=== PATIENT | female | born 1985 | race Caucasian/White ===

== ENCOUNTER → 2016-07-23 | Outpatient (CLI) | payer OTHER | END | disposition disaster alternative care site (69) | LOC: GRAD 07-22 16:00 | DX: M54.5 Low back pain (principal); M47.816 Spondylosis without myelopathy or radiculopathy, lumbar region ==

== ENCOUNTER 2016-07-29 22:55 | Emergency (ER) | payer OTHER ==
--- NOTE | ~2016-07-29 | ER ---
PATIENT'S NAME: [facility] AGE: 30 Y [address] ROOM: [place], [place] [address] LOCATION: [facility] ADMIT DATE: 07/29/2016 ER/Outpatient Report DISCHARGE DATE: 07/29/2016 FAMILY PHYSICIAN: Verónica Pinto MD ATTENDING PHYSICIAN: Madai Norton TIME OF ARRIVAL: 2255 hours. TIME SEEN: 2311 hours. IDENTIFICATION: A 30-year-old female. CHIEF COMPLAINT: Back pain. HISTORY OF PRESENT ILLNESS: The patient is a 30-year-old female who has had worsening back pain and has run out of her medications 2 to 3 [address] ago[address] She saw Dr. Freedman July 09 for this back pain. She told the nurse then that she was told there was nothing wrong on her MRI. She told me that she had degenerative changes. She saw Dr. Storm today and he recommended that she follow up with her primary care physician, which she has not yet done, because that was just today, and she has not gotten in with Dr. Pinto yet; however, later, she does tell me that she actually saw Dr. Pinto prior to the MRI, but she is telling me different story than what she told the nurse. She has some tramadol at home that causes nausea, vomiting. She believes she had Neurontin or [place], she is not sure which she stopped taking 3 days ago. When asked her specifically about that, she does admit that she ran out 3 days ago. I tried to pin her down for what Dr. Storm had to say today and she said that she has degenerative changes, but he referred her back to Dr. Pinto. She denies any fall or injury. She complains of constant pain in her right low back with radiation to her right buttock. She has trouble with bowel movements just secondary to the pain when pushing. She has no incontinence of urine or bowel. Her last menstrual period she believes she is due for that again today. She has had a tubal ligation and she denies any chance of . ALLERGIES: DOXYCYCLINE. CURRENT MEDICATIONS: 1. Meloxicam. 2. Depression meds. PATIENT'S NAME: [facility] AGE: 30 Y [address] ROOM: [place], [place] [address] LOCATION: ED ADMIT DATE: 07/29/2016 ER/Outpatient Report DISCHARGE DATE: 07/29/2016 FAMILY PHYSICIAN: Verónica Pinto MD ATTENDING PHYSICIAN: Madai Norton 3. Flexeril. 4. [place]. 5. Ibuprofen. MEDICAL PROBLEMS: History of migraine headaches. PRIOR SURGERIES: Right ring finger, cholecystectomy, and tubal ligation. SOCIAL HISTORY: The patient lives here in [place]. Tobacco use, 1 pack per day. Alcohol use, occasional. Drug use, denies. REVIEW OF SYSTEMS: All systems reviewed and negative other than what is noted in the HPI. PHYSICAL EXAMINATION: VITAL SIGNS: Height 5 feet, 8 inches and weight 72.2 kg. Blood pressure 157/88, pulse 88, respirations 16, temp 98.7, and sats 98%. GENERAL: A 30-year-old female in no acute distress. HEENT: Head: Normocephalic, atraumatic. Eyes: Pupils equal and reactive to light and accommodation. Extraocular movements intact. Nose: Mucosa pink. No lesions. Mouth: No lesions. LUNGS: Clear to auscultation. HEART: Regular rate and rhythm. BACK: She is tender to palpation in the right lumbar paraspinal region. No palpable deformities. Decreased range of motion, secondary to pain. NEURO: Negative straight leg raise. Reflexes are 2+ and symmetric. Sensation is normal to light touch in bilateral lower extremities. IMPRESSION AND PLAN: Musculoskeletal low back pain. I did review her MRI, which was dated July 23 showing early degenerative changes at L3-4 and L4-5. Mild stenosis at L4- 5. Facet arthropathy at L4-5. Limited cervical imaging on the localize that is notable for C5-6 degenerative change with potentially clinically significant canal and bilateral foraminal stenosis. This could be evaluated with a dedicated cervical spine per the radiologist. We discussed using Toradol for pain here in the emergency room. As I was discussing this with her, the patient was on her phone and then all of a sudden got up and said she needed to leave because her kids were at home with her "old man who had been drinking." She said she would come back possibly later tomorrow, but that she was going to leave without any further advice at this time. PATIENT'S NAME: [facility] AGE: 30 Y [address] ROOM: [place], [place] [address] LOCATION: ED ADMIT DATE: 07/29/2016 ER/Outpatient Report DISCHARGE DATE: 07/29/2016 FAMILY PHYSICIAN: Verónica Pinto MD ATTENDING PHYSICIAN: Madai Norton MADAI NORTON MD CAR/modl /[id number] d: 07/30/16 0404 t: 07/31/16 0454, OUTPATIENT REPORT
== END 2016-07-29 23:17 | disposition left against medical advice (07) ==
LOC: GMED 22:55
DX: M54.5 Low back pain (principal); F17.210 Nicotine dependence, cigarettes, uncomplicated; Z88.8 Allergy status to other drugs, medicaments and biological substances; Z90.49 Acquired absence of other specified parts of digestive tract; Z98.51 Tubal ligation status